=== PATIENT | female | born 1945 | race Caucasian/White ===

== ENCOUNTER 2016-08-19 09:52 | Emergency (ER) | payer MEDICARE, BC ==
[2016-08-19 15:07] VITALS: BP 131/53
--- NOTE | 2016-08-19 22:11 | ED ---
Wale Lemos Aidan, scribed for Td Bryant MD on 08/19/16 at 1453 . GI/ HPI - HPI Summary HPI Summary: 71 y/o female presents to the ED with a complaint of an acute, constant, moderate colostomy bag issues and acute, moderate episodes of diarrhea. The area around her colostomy bag is mildly swollen and she cannot place the seal down. Last time she attempted to adjust the seal, she caused bleeding. Hx of diabetes. She was recently placed on metformin and believes that this is causing her diarrhea. - History of Current Complaint Chief Complaint: EDGeneral Time Seen by Provider: 08/19/16 13:24 Stated Complaint: colostomy SWOLLEN Hx Obtained From: Patient Onset/Duration: Started Days Ago, Still Present Timing: Constant - swelling of the stoma, Intermittent - of diarrhea, Lasting Days Severity: Moderate Current Severity: Moderate Number of Pads per Day: 0 Number of Pads per Hour: 0 Pain Intensity: 0 Location of Pain: Radiates to: - no pain mentioned Pain Characteristics: Other: - no pain mentioned Associated Signs and Symptoms: Positive: Other: - swelling of stoma, bleeding after trying to adjust seal on colostomy bag, diarrhea Aggravating Factor(s): Nothing - however, metformin may have caused diarrhea Alleviating Factor(s): Nothing - unknown - Allergy/Home Medications Allergies/Adverse Reactions: Allergies Allergy/AdvReac Type Severity Reaction Status Date / Time Sulfa Antibiotics Allergy Unknown Verified 08/19/16 11:16 Reaction Details ANESTHETIC Allergy Nausea And Uncoded 08/19/16 11:16 Vomiting Home Medications: Home Medications Albuterol HFA INHALER* [Ventolin HFA Inhaler*] 1 puff INH QID PRN 08/19/16 [ History Confirmed 08/19/16] Aspirin [Aspirin Enteric Coated 81 MG] 81 mg PO DAILY 08/19/16 [History Confirmed 08/19/16] Clopidogrel TAB* [Plavix TAB*] 75 mg PO DAILY 08/19/16 [History Confirmed ] Lisinopril TAB* [Prinivil TAB 10 MG*] 10 mg PO DAILY 08/19/16 [History Confirmed 08/19/16] Metoprolol Tartrate TAB* [Lopressor TAB*] 25 mg PO BID 08/19/16 [History Confirmed 08/19/16] Montelukast Sodium TAB* [Singulair 10 MG TAB*] 10 mg PO BEDTIME 08/19/16 [ History Confirmed 08/19/16] PMH/Surg Hx/FS Hx/Imm Hx Endocrine/Hematology History: Reports: Hx Diabetes GI History: Reports: Other GI Disorders - colostomy bag Infectious Disease History: No Infectious Disease History: Denies: Traveled Outside the [place] in Last 30 Days - Family History Known Family History: Positive: Diabetes - Social History Occupation: Employed Full-time Lives: Alone Alcohol Use: None Substance Use Type: Reports: None Smoking Status (MU): Never Smoked Tobacco Review of Systems Constitutional: Negative Eyes: Negative ENT: Negative Cardiovascular: Negative Respiratory: Negative Positive: Diarrhea. Negative: Abdominal Pain, Vomiting, Nausea Genitourinary: Negative Musculoskeletal: Negative Positive: Other - swelling around stoma, bleeding after trying to adjust colostomy bag seal. Negative: Rash, Bruising Neurological: Negative Psychological: Normal All Other Systems Reviewed And Are Negative: Yes Physical Exam Triage Information Reviewed: Yes Vital Signs On Initial Exam: Initial Vitals Temp Pulse Resp BP Pulse Ox 98.2 F 92 18 140/92 100 08/19/16 09:58 08/19/16 09:58 08/19/16 09:58 08/19/16 09:58 08/19/16 09:58 Vital Signs Reviewed: Yes Appearance: Positive: Well-Appearing, No Pain Distress Skin: Positive: Warm, Skin Color Reflects Adequate Perfusion, Dry, Other - stoma was swollen Head/Face: Positive: Normal Head/Face Inspection Eyes: Positive: Normal ENT: Positive: Normal ENT inspection Respiratory/Lung Sounds: Positive: Clear to Auscultation, Breath Sounds Present Cardiovascular: Positive: RRR Abdomen Description: Positive: Nontender, Soft Bowel Sounds: Positive: Present Musculoskeletal: Positive: Normal Neurological: Positive: Normal Psychiatric: Positive: Affect/Mood Appropriate - [place] Coma Scale Coma Scale Total: 15 Diagnostics - Vital Signs Vital Signs Temp Pulse Resp BP Pulse Ox 08/19/16 14:17 78 98 08/19/16 14:00 118/46 08/19/16 12:30 78 140/64 98 08/19/16 12:00 71 120/50 95 08/19/16 11:30 80 118/62 98 08/19/16 11:12 83 98 08/19/16 11:10 98.6 F 81 16 137/64 97 08/19/16 09:58 98.2 F 92 18 140/92 100 - Laboratory Lab Statement: Any lab studies that have been ordered have been reviewed, and results considered in the medical decision making process. GIGU Course/Dx - Course Course Of Treatment: 71 y/o female presents with diarrhea and swelling around stoma (colostomy bag). Sugar was applied to the stoma and after it shrank, a new ostomy bag was placed. She will follow up with Dr. Anthony. - Diagnoses Provider Diagnoses: Stoma malfunction Discharge - Discharge Plan Condition: Stable Disposition: HOME Discharge Disposition Comment: Please follow up with Dr. Anthony with surgery within 2 days, Patient Education Materials: Colostomy Care (ED) Referrals: Milady CASTILLO,Julio Louie [Primary Care Provider] - Martin Anthony MD [Medical Doctor] - The documentation as recorded by the Wale oh Aidan accurately reflects the service I personally performed and the decisions made by me, Td Bryant MD.
== END 2016-08-19 15:06 | disposition home or self-care (01) ==
LOC: ED 09:52
DX: K94.00 Colostomy complication, unspecified (principal); R19.7 Diarrhea, unspecified
CPT/HCPCS: 99283

== ENCOUNTER 2016-11-02 08:10 | Day surgery (SDC) | payer MEDICARE, BC ==
[~2016-11-02 08:10] MED LIST: Acetaminophen TAB* 325 MG PO PRN; Buffered Lidocaine 0.9% SYRIN* 5 ML/SYR SYRINGE INTRADERM ONE
[2016-11-02] MEDS ORDERED: Midazolam* 1 MG/ML 2 ML VIAL (2 MG) ONE ×2 (10:05→10:24)
[2016-11-02] MEDS ORDERED: Ondansetron INJ* 2 MG/ML VIAL ONE (10:21)
[2016-11-02 11:01] VITALS: BP 133/63
--- NOTE | 2016-11-02 11:25 | OP ---
DATE OF OPERATION: 11/02/2016. DATE OF : 1945. SURGEON: Kailash Jenkins M.D. PREOPERATIVE DIAGNOSIS: Cataract right eye. POSTOPERATIVE DIAGNOSIS: Cataract right eye. OPERATIVE PROCEDURE: Phacoemulsification right eye with IOL. PROCEDURE: The patient was brought to the operating room after being given 1/2% Alcaine with epinep hrine drops in the preoperative area. The eye was prepped and draped in the usual sterile fashion. Sterile drape and eyelid speculum were placed. Again, topical 1/2% Alcaine with epinephrine was gi shayla. A paracentesis incision was made at the 9 o'clock position with the No.75 blade. Clear cornea incision 2.2 x 2.2-mm was created at the 12 o'clock position starting at the anterior limbus using the 2.2-mm keratome. The anterior chamber was irrigated with 0.4 mL of 1% non-preservative intracam eral lidocaine and filled with DisCoVisc. A capsulorrhexis was completed using the cystotome and th e Utrata forceps. Hydrodissection was performed with balanced salt solution. The lens nucleus was r emoved with the Phacoemulsification handpiece without incident. Cortex was removed with the irrigat ion-aspiration handpiece. The capsular bag was re-inflated using DisCoVisc and an SN60WF 19.5 impla nt was inserted with the shooter. The irrigation-aspiration handpiece was used to remove all residu al DisCoVisc. The eye was refilled with balanced salt solution and the wound checked and found to b e watertight. Topical Maxitrol drops were given. [id number]/[facility] #: [id number]
[2016-11-02] MEDS ORDERED: Lidocaine 1% MPF* 2 ML VIAL ONE (13:31)
[2016-11-02] MEDS ORDERED: Povidone Iodine 5% OPTH* 30 ML BTL ONE (13:31)
[2016-11-02] MEDS ORDERED: Buffered Lidocaine 0.9% SYRIN* 5 ML/SYR SYRINGE ONE (13:31)
[2016-11-02] MEDS ORDERED: acetaZOLAMIDE TAB* 250 MG ONE (13:31)
[2016-11-02] MEDS ORDERED: Phenylephrine 2.5% OPTH.SOL* 2 ML BTL ONE (13:31)
[2016-11-02] MEDS ORDERED: Lidocaine 2% EPI 1:200000 MPF* 20 ML VIAL ONE (13:31)
[2016-11-02] MEDS ORDERED: Flurbiprofen 0.03% OPTH.SOL* 2.5 ML BTL ONE (13:31)
[2016-11-02] MEDS ORDERED: Cyclopentolate 1% OPTH.SOL* 2 ML BTL ONE (13:31)
[2016-11-02] MEDS ORDERED: Proparacaine 0.5% OPHTH.SOL* 15 ML BTL ONE (13:31)
[2016-11-02] MEDS ORDERED: Neomycin/Polymy/Dex OPTH.SUSP* MAXITROL 0.1% 5 ML ONE (13:31)
== END 2016-11-02 11:02 | disposition home or self-care (01) ==
LOC: OREAST 08:10
PROVIDERS: ATTEND Specialist
DX: H25.811 Combined forms of age-related cataract, right eye (principal); E11.3293 Type 2 diabetes mellitus with mild nonproliferative diabetic retinopathy without macular edema, bilateral; Z79.4 Long term (current) use of insulin; I10 Essential (primary) hypertension; I25.2 Old myocardial infarction; E03.9 Hypothyroidism, unspecified; J45.909 Unspecified asthma, uncomplicated; G47.33 Obstructive sleep apnea (adult) (pediatric)
CPT/HCPCS: A9270-GY; J2250; J2405; V2632

== ENCOUNTER 2016-11-09 07:37 | Day surgery (SDC) | payer MEDICARE, BC ==
[2016-11-09] MEDS ORDERED: Midazolam* 1 MG/ML 2 ML VIAL (2 MG) ONE ×2 (09:12→09:20)
[2016-11-09] MEDS ORDERED: Ondansetron INJ* 2 MG/ML VIAL ONE (09:12)
[2016-11-09 10:01] VITALS: BP 106/47
[2016-11-09] MEDS ORDERED: Neomycin/Polymy/Dex OPTH.SUSP* MAXITROL 0.1% 5 ML ONE (14:44)
[2016-11-09] MEDS ORDERED: Phenylephrine 2.5% OPTH.SOL* 2 ML BTL ONE (14:44)
[2016-11-09] MEDS ORDERED: Cyclopentolate 1% OPTH.SOL* 2 ML BTL ONE (14:44)
[2016-11-09] MEDS ORDERED: Povidone Iodine 5% OPTH* 30 ML BTL ONE (14:44)
[2016-11-09] MEDS ORDERED: Flurbiprofen 0.03% OPTH.SOL* 2.5 ML BTL ONE (14:44)
[2016-11-09] MEDS ORDERED: Lidocaine 2% EPI 1:200000 MPF* 20 ML VIAL ONE (14:44)
[2016-11-09] MEDS ORDERED: acetaZOLAMIDE TAB* 250 MG ONE (14:44)
[2016-11-09] MEDS ORDERED: Lidocaine 1% MPF* 2 ML VIAL ONE (14:44)
[2016-11-09] MEDS ORDERED: Proparacaine 0.5% OPHTH.SOL* 15 ML BTL ONE (14:45)
[2016-11-09] MEDS ORDERED: Buffered Lidocaine 0.9% SYRIN* 5 ML/SYR SYRINGE ONE (14:45)
--- NOTE | 2016-11-10 04:25 | OP ---
DATE OF OPERATION: 11/09/16 [facility] DATE OF : [birth year] SURGEON: Kailash Jenkins MD PREOPERATIVE DIAGNOSIS: Cataract, left eye. POSTOPERATIVE DIAGNOSIS: Cataract, left eye. OPERATIVE PROCEDURE: Phacoemulsification, left eye with IOL. DESCRIPTION OF PROCEDURE: The patient was brought to the operating room after being given 1/2% Alcaine with epinephrine drops in the preoperative area. The eye was prepped and draped in the usual sterile fashion. Sterile drape and eyelid speculum were placed. Again, topical 1/2% Alcaine with epinephrine was given. A paracentesis incision was made at the 3 o'clock position with the No.75 blade. Clear cornea incision 2.2 x 2.2-mm was created at the 6 o'clock position starting at the anterior limbus using the 2.2-mm keratome. The anterior chamber was irrigated with 0.4 mL of 1% non-preservative intracameral lidocaine and filled with DisCoVisc. A capsulorrhexis was completed using the cystotome and the Utrata forceps. Hydrodissection was performed with balanced salt solution. The lens nucleus was removed with the Phacoemulsification handpiece without incident. Cortex was removed with the irrigation-aspiration handpiece. The capsular bag was re-inflated using DisCoVisc and an [id number] 18 implant was inserted with the shooter. The irrigation-aspiration handpiece was used to remove all residual DisCoVisc. The eye was refilled with balanced salt solution and the wound checked and found to be watertight. Topical Maxitrol drops were given. [id number]/[facility] #: [id number] MTDYari
== END 2016-11-09 09:55 | disposition home or self-care (01) ==
LOC: OREAST 07:37
PROVIDERS: ATTEND Specialist
DX: H25.812 Combined forms of age-related cataract, left eye (principal); E11.3293 Type 2 diabetes mellitus with mild nonproliferative diabetic retinopathy without macular edema, bilateral; E03.9 Hypothyroidism, unspecified; G47.33 Obstructive sleep apnea (adult) (pediatric); J45.909 Unspecified asthma, uncomplicated; Z85.3 Personal history of malignant neoplasm of breast
CPT/HCPCS: A9270-GY; J2250; J2405; V2632

== ENCOUNTER 2018-12-27 13:38 | Emergency (ER) | payer MEDICARE, BC ==
[2018-12-27 13:48] VITALS: BP 147/65
--- NOTE | 2018-12-27 14:51 | UC ---
Cardiac HPI - HPI Summary HPI Summary: 73-year-old woman comes in with a chief complaint of left chest pain. Started about 5 days ago. Is in the left upper chest and radiates down the left arm. Pain is worse with deep inspiration. Patient does have a left subclavian port that's being used for chemotherapy for metastatic ovarian cancer. She does have chronic bilateral hand numbness the left is not worse in the right. She's had heart attack in the past and she says this does not feel like her heart attack. She has been having some chills. She's also been having some bilateral upper abdominal pain. - History of Current Complaint Chief Complaint: UCGeneralIllness Stated Complaint: ABD PAIN SORE THROAT SHOULDER/ARM PAIN HEADACHE Time Seen by Provider: 12/27/18 14:30 Pain Intensity: 7 - Allergy/Home Medications Allergies/Adverse Reactions: Allergies Allergy/AdvReac Type Severity Reaction Status Date / Time Jmoiozb-Eja-Cka Reductase Allergy muscle pain Verified 12/27/18 13:48 Inhibitor Sulfa (Sulfonamide Allergy unk Verified 12/27/18 13:48 Antibiotics) Environmental Allergy Congestion Uncoded 11/09/16 08:00 ANESTHETIC AdvReac Nausea And Uncoded 11/09/16 08:00 Vomiting Home Medications: Home Medications Alirocumab [Praluent Pen] 1 dose IM WEEKLY 12/27/18 [History Confirmed 12/27/18] Antinausea Med 12/27/18 [History] CARBOplatin [Carboplatin] 12/27/18 [History] Clobetasol 0.05% OINT* 1 applic TOPICAL BID 12/27/18 [History Confirmed 12/27/18 ] DOXOrubicin LIPOSOMAL* [Doxil*] 1 dose 12/27/18 [History] Dexamethasone [Decadron] 12/27/18 [History] FLUoxetine CAP* [PROzac CAP*] 20 mg PO DAILY 12/27/18 [History Confirmed ] Fluocinonide 0.05% CM (NF) [Lidex 0.05% CREAM (NF)] 1 applic TOPICAL BID [History Confirmed 12/27/18] Gabapentin 1 tab PO TID 12/27/18 [History Confirmed 12/27/18] Insulin Aspart [Novolog] 1 dose SUBCUT AC PRN 12/27/18 [History Confirmed ] Loratadine [Claritin] 1 tab PO DAILY 12/27/18 [History Confirmed 12/27/18] Semaglutide [Ozempic] 1 dose IM WEEKLY 12/27/18 [History Confirmed 12/27/18] PMH/Surg Hx/FS Hx/Imm Hx Previously Healthy: Yes - metastatic ovarian cancer Cardiovascular History: Myocardial Infarction - Surgical History Surgical History: Yes Surgery Procedure, Year, and Place: knee replacements 2007, 2014. right breast masectomy 1984. colon surgery with colostomy 2015. cholecystectomy 2012. wisdom teeth, unsure - Family History Known Family History: Positive: Diabetes - Social History Alcohol Use: None Substance Use Type: None Smoking Status (MU): Never Smoked Tobacco Review of Systems All Other Systems Reviewed And Are Negative: Yes Constitutional: Positive: Chills Skin: Positive: Negative Eyes: Positive: Negative ENT: Positive: Negative Respiratory: Positive: Other - SEE HPI Cardiovascular: Positive: Chest Pain Gastrointestinal: Positive: Abdominal Pain Motor: Positive: Negative Neurovascular: Positive: Negative Musculoskeletal: Positive: Negative Neurological: Positive: Negative Psychological: Positive: Negative Is Patient Immunocompromised?: No Physical Exam Triage Information Reviewed: Yes Appearance: No Pain Distress, Well-Nourished, Ill-Appearing - MILD Vital Signs: Initial Vital Signs Temp 98 F 12/27/18 13:44 Pulse 96 12/27/18 13:44 Resp 16 12/27/18 13:44 BP 147/65 12/27/18 13:44 Pulse Ox 100 12/27/18 13:44 Vital Signs Reviewed: Yes Eye Exam: Normal Eyes: Positive: Conjunctiva Clear ENT: Positive: Pharynx normal Neck: Positive: Supple Respiratory: Positive: Lungs clear, Normal breath sounds, No respiratory distress Cardiovascular: Positive: RRR Abdomen Description: Positive: Other: - Mild tenderness to palpation upper abdomen bilaterally. Bowel Sounds: Positive: Present Musculoskeletal: Positive: Strength Intact, ROM Intact Neurological: Positive: Alert Psychological: Positive: Age Appropriate Behavior Skin Exam: Normal Diagnostics - EKG Cardiac Rate: NL - AT 1450 Cardiac Rhythm: Sinus: Normal - 94BPM Ectopy: None ST Segment: Normal - Assessment/Plan Course Of Treatment: I did not see any ischemic changes on the EKG. I discussed this with the patient. With the patient's constellation of symptoms her pain could be a cardiac cause or pulmonary cause include pulmonary embolus. Also she could have an infection and the port or clotting around the port. She also has upper abdominal pain chills. With her being immunocompromised she could also have infection. I recommended further evaluation in the emergency department patient preferred to go by POV. - Clinical Impression Provider Diagnosis: Chest pain Discharge ED - Sign-Out/Discharge Documenting (check all that apply): Patient Departure All imaging exams completed and their final reports reviewed: No Studies - Discharge Plan Condition: Stable Disposition: HOME-RECOMMEND TO ED Patient Education Materials: Chest Pain (ED) Referrals: Milady CASTILLO,Julio Louie [Primary Care Provider] - Additional Instructions: GO DIRECTLY TO THE EMERGENCY DEPARTMENT FOR FURTHER EVALUATION OF YOUR CHEST PAIN. - Billing Disposition and Condition Condition: STABLE Disposition: Home-Recommend to ED
== END 2018-12-27 15:00 | disposition home health service (06) ==
LOC: UCEAST 13:38
DX: R07.89 Other chest pain (principal); C56.9 Malignant neoplasm of unspecified ovary; C79.9 Secondary malignant neoplasm of unspecified site; I25.2 Old myocardial infarction; Z88.2 Allergy status to sulfonamides
CPT/HCPCS: 99212; G0463

== ENCOUNTER 2018-12-27 15:22 | Inpatient (IN) | payer MEDICARE, BC ==
[2018-12-27 16:01] LABS: INR 1.03 (0.82-1.09)
[2018-12-27 16:05] LABS: ABS Lymphocytes 0.9 10^3/ul (1.0-4.8); ABS Monocytes 0.4 10^3/ul (0-0.8); ABS Neutrophils 3.4 10^3/ul (1.5-7.7); Hematocrit 28 % (35-47); Hemoglobin 9.4 g/dL (12.0-16.0); Lymphocyte % 19.3 %; Mean Corpuscular HGB Conc 34 g/dL (31-36); Mean Corpuscular Hemoglobin 35 pg (27-31); Mean Corpuscular Volume 103 fL (80-97); Mean Platelet Volume 7.7 fL (7.4-10.4); Nucleated Red Blood Cells % 0.1; Platelet Count 166 10^3/uL (150-450); Red Cell Distribution Width 18 % (10-15); White Blood Count 4.8 10^3/uL (3.5-10.8)
[2018-12-27 16:21] LABS: Albumin/Globulin Ratio 1.3 (1-3); BUN/Creatinine Ratio 18.1 (8-20); Calcium 9.7 mg/dL (8.6-10.3); EGFR African American 96.1 (>60); EGFR Non-African American 79.4 (>60); Potassium 3.9 mmol/L (3.5-5.0); Total Bilirubin 0.3 mg/dL (0.2-1.0)
--- NOTE | 2018-12-27 21:09 | ED ---
Abdominal Pain/Female - HPI Summary HPI Summary: Patient has multiple complaints including left side shoulder pain radiating down her arm, bilateral upper abdominal pain, nausea, diarrhea, drainage from umbilicus 5 days. Patient currently receiving chemotherapy once a month for history of ovarian cancer which metastasized to colon and stomach. States most of colon and partial stomach was resected a year and a half ago. Colostomy reversal last year. History of chronic umbilical and right ventral hernias. History of cardiac stents 2015. Denies fever, cough, sore throat, SOB, vomiting , change in urine, vaginal symptoms. Medical history is hypothyroid, DM, ovarian cancer. - History of Current Complaint Chief Complaint: EDChestPainROMI Stated Complaint: LT SHOULDER PAIN PER PT Time Seen by Provider: 12/27/18 20:52 Hx Obtained From: Patient Onset/Duration: Gradual Onset, Lasting Days Timing: Intermittent Episode Lasting Severity Initially: Moderate Severity Currently: Moderate Pain Intensity: 5 Pain Scale Used: 0-10 Numeric Location: Discrete At: RUQ, Discrete At: LUQ, Epigastric Radiates to: Chest Character: Cramping Aggravating Factor(s): Nothing Alleviating Factor(s): Nothing Associated Signs and Symptoms: Positive: Chest Pain, Nausea, Diarrhea Allergies/Adverse Reactions: Allergies Allergy/AdvReac Type Severity Reaction Status Date / Time Uzjofbs-Urs-Umw Reductase Allergy muscle pain Verified 12/27/18 21:04 Inhibitor Sulfa (Sulfonamide Allergy unk Verified 12/27/18 21:04 Antibiotics) Environmental Allergy Congestion Uncoded 12/27/18 21:04 ANESTHETIC AdvReac Nausea And Uncoded 12/27/18 21:04 Vomiting Home Medications: Home Medications Clobetasol 0.05% OINT* 1 applic TOPICAL BID 12/28/18 [History Confirmed 12/28/18 ] PMH/Surg Hx/FS Hx/Imm Hx Endocrine/Hematology History: Reports: Hx Diabetes - TYPE II, Hx Thyroid Disease - HYPOTHYROID, controlled with medication Cardiovascular History: Reports: Hx Hypertension - controlled with medication, Other Cardiovascular Problems/Disorders - cardiac cath. 4 stents August 2015 Respiratory History: Reports: Hx Asthma - exercise induced, has prn inhaler, Hx Sleep Apnea GI History: Reports: Hx Irritable Bowel, Other GI Disorders - colostomy since 2015, gallstones 2012? had cholecystectomy Musculoskeletal History: Reports: Hx Arthritis, Other Musculoskeletal History - knee replacements Left 2007, Right 2014 Sensory History: Reports: Hx Cataracts, Hx Contacts or Glasses - wears glasses, Hx Glaucoma - borderline Denies: Hx Hearing Aid Opthamlomology History: Reports: Hx Cataracts, Hx Contacts or Glasses - wears glasses, Hx Glaucoma - borderline EENT History: Denies: Hx Deafness Psychiatric History: Reports: Hx Anxiety - r/t family situation, Hx Depression - improved - Cancer History Cancer Type, Location and Year: ovaries mets to all over in remission Hx Chemotherapy: Yes - finished chemo August 2016 - Surgical History Surgery Procedure, Year, and Place: knee replacements 2007, 2014. right breast masectomy 1984. colon surgery with colostomy 2015. cholecystectomy 2012. wisdom teeth, unsure Hx Anesthesia Reactions: Yes - pt reports severe N/V after anesthesia - Immunization History Immunizations Up to Date: Yes Infectious Disease History: No Infectious Disease History: Denies: Traveled Outside the [place] in Last 30 Days - Family History Known Family History: Positive: Diabetes - Social History Alcohol Use: None Substance Use Type: Reports: None Smoking Status (MU): Never Smoked Tobacco Review of Systems Constitutional: Negative Eyes: Negative ENT: Negative Positive: Chest Pain Respiratory: Negative Positive: Abdominal Pain, Nausea Genitourinary: Negative Musculoskeletal: Negative Skin: Negative Neurological: Negative Psychological: Normal All Other Systems Reviewed And Are Negative: Yes Physical Exam - Summary Physical Exam Summary: Left-sided chest pain up near shoulder, tender to palpation. Pain reproducible with movement of left upper extremity. Abdomen diffusely tender with palpation. Drainage from umbilicus with no foul odor noted. Umbilical and right ventral hernia both reducible. Triage Information Reviewed: Yes Vital Signs On Initial Exam: Initial Vitals Temp Pulse Resp BP Pulse Ox 100.5 F 100 18 162/54 96 12/27/18 15:32 12/27/18 15:32 12/27/18 15:32 12/27/18 15:32 12/27/18 15:32 Vital Signs Reviewed: Yes Appearance: Positive: Well-Appearing Skin: Positive: Warm Head/Face: Positive: Normal Head/Face Inspection Eyes: Positive: Normal Neck: Positive: Supple Respiratory/Lung Sounds: Positive: Clear to Auscultation Cardiovascular: Positive: Normal Abdomen Description: Positive: Other: Musculoskeletal: Positive: Normal Neurological: Positive: Normal Psychiatric: Positive: Normal AVPU Assessment: Alert - [place] Coma Scale Best Eye Response: 4 - Spontaneous Best Motor Response: 6 - Obeys Commands Best Verbal Response: 5 - Oriented Coma Scale Total: 15 Diagnostics - Vital Signs Vital Signs Temp Pulse Resp BP Pulse Ox 12/27/18 20:22 99.2 F 93 18 159/82 96 12/27/18 17:43 100.8 F 89 20 121/59 97 12/27/18 15:32 100.5 F 100 18 162/54 96 - Laboratory Lab Results: Lab Results 12/27/18 12/27/18 12/27/18 Range/Units 15:46 15:46 15:46 WBC 4.8 (3.5-10.8) 10^3/uL RBC 2.70 L (3.70-4.87) 10^6 /uL Hgb 9.4 L (12.0-16.0) g/dL Hct 28 L (35-47) % MCV 103 H (80-97) fL MCH 35 H (27-31) pg MCHC 34 (31-36) g/dL RDW 18 H (10-15) % Plt Count 166 (150-450) 10^3/uL MPV 7.7 (7.4-10.4) fL Neut % (Auto) 70.0 % Lymph % (Auto) 19.3 % [place] % (Auto) 9.2 % Eos % (Auto) 1.0 % Baso % (Auto) 0.5 % Absolute Neuts (auto) 3.4 (1.5-7.7) 10^3/ul Absolute Lymphs (auto) 0.9 L (1.0-4.8) 10^3/ul Absolute Monos (auto) 0.4 (0-0.8) 10^3/ul Absolute Eos (auto) 0.0 (0-0.6) 10^3/ul Absolute Basos (auto) 0.0 (0-0.2) 10^3/ul Absolute Nucleated RBC 0.0 10^3/ul Nucleated RBC % 0.1 INR (Anticoag Therapy) 1.03 (0.82-1.09) Sodium 136 (135-145) mmol/L Potassium 3.9 (3.5-5.0) mmol/L Chloride 100 L (101-111) mmol/L Carbon Dioxide 26 (22-32) mmol/L Anion Gap 10 (2-11) mmol/L BUN 13 (6-24) mg/dL Creatinine 0.72 (0.51-0.95) mg/dL Est GFR ( Amer) 96.1 (>60) Est GFR (Non-Af Amer) 79.4 (>60) BUN/Creatinine Ratio 18.1 (8-20) Glucose 138 H (70-100) mg/dL Calcium 9.7 (8.6-10.3) mg/dL Total Bilirubin 0.30 (0.2-1.0) mg/dL AST 13 (13-39) U/L ALT 13 (7-52) U/L Alkaline Phosphatase 81 (34-104) U/L Troponin I 0.00 (<0.04) ng/mL Total Protein 7.0 (6.4-8.9) g/dL Albumin 4.0 (3.2-5.2) g/dL Globulin 3.0 (2-4) g/dL Albumin/Globulin Ratio 1.3 (1-3) 12/27/18 Range/Units 19:24 WBC (3.5-10.8) 10^3/uL RBC (3.70-4.87) 10^6 /uL Hgb (12.0-16.0) g/dL Hct (35-47) % MCV (80-97) fL MCH (27-31) pg MCHC (31-36) g/dL RDW (10-15) % Plt Count (150-450) 10^3/uL MPV (7.4-10.4) fL Neut % (Auto) % Lymph % (Auto) % [place] % (Auto) % Eos % (Auto) % Baso % (Auto) % Absolute Neuts (auto) (1.5-7.7) 10^3/ul Absolute Lymphs (auto) (1.0-4.8) 10^3/ul Absolute Monos (auto) (0-0.8) 10^3/ul Absolute Eos (auto) (0-0.6) 10^3/ul Absolute Basos (auto) (0-0.2) 10^3/ul Absolute Nucleated RBC 10^3/ul Nucleated RBC % INR (Anticoag Therapy) (0.82-1.09) Sodium (135-145) mmol/L Potassium (3.5-5.0) mmol/L Chloride (101-111) mmol/L Carbon Dioxide (22-32) mmol/L Anion Gap (2-11) mmol/L BUN (6-24) mg/dL Creatinine (0.51-0.95) mg/dL Est GFR ( Amer) (>60) Est GFR (Non-Af Amer) (>60) BUN/Creatinine Ratio (8-20) Glucose (70-100) mg/dL Calcium (8.6-10.3) mg/dL Total Bilirubin (0.2-1.0) mg/dL AST (13-39) U/L ALT (7-52) U/L Alkaline Phosphatase (34-104) U/L Troponin I 0.01 (<0.04) ng/mL Total Protein (6.4-8.9) g/dL Albumin (3.2-5.2) g/dL Globulin (2-4) g/dL Albumin/Globulin Ratio (1-3) Result Diagrams: 12/29/18 05:55 12/29/18 05:55 Lab Statement: Any lab studies that have been ordered have been reviewed, and results considered in the medical decision making process. Abdominal Pain Fem Course/Dx - Course Course Of Treatment: Patient has multiple complaints including left side shoulder pain radiating down her arm, bilateral upper abdominal pain, nausea, diarrhea, drainage from umbilicus 5 days. Patient currently receiving chemotherapy once a month for history of ovarian cancer which metastasized to colon and stomach. States most of colon and partial stomach was resected a year and a half ago. Colostomy reversal last year. History of chronic umbilical and right ventral hernias. History of cardiac stents 2016. Denies fever, cough, sore throat, SOB, vomiting, change in urine, vaginal symptoms. Medical history is hypothyroid, DM, ovarian cancer. Febrile at 100.8 on arrival. Heart rate 100. Fever resolved. Vital signs otherwise within normal limits. Labs otherwise unremarkable read patient baseline. EKG sinus rhythm, normal RI I, no prior to compare to. CT chest abdomen and pelvis with contrast positive for left-sided pneumonia, and right epigastric anterolateral hernia containing the herpetic flexure with question of a low-grade colonic obstruction. Patient has no history of recent admission to hospital. Patient meets sepsis criteria. Started on Rocephin 1 g and azithromycin 500 mg IV for pneumonia. Admitted to hospitalist . - Diagnoses Provider Diagnoses: Sepsis, Pneumonia Discharge ED - Sign-Out/Discharge Documenting (check all that apply): Patient Departure - Discharge Plan Condition: Fair Disposition: ADMITTED TO [facility] - Billing Disposition and Condition Condition: FAIR Disposition: Admitted to [facility]
[2018-12-27] MEDS ORDERED: Iodixanol* (CONTRAST) 320 MG/ML 100 ML SDV IV ONE (21:46)
[2018-12-27] MEDS ORDERED: Azithromycin 500 mg/250 ml NS 500 MG/250 ML BAG IVPB ONE (23:46)
[2018-12-27] MEDS ORDERED: cefTRIAXone(*) 1 GM in NS 0.9% 50 ML* 50 ML IVPB ONE (23:46)
[2018-12-27] MEDS ORDERED: NS 0.9% 1000 ML** 2,000 ML IV ONE (23:48)
[2018-12-28 03:18] LABS: Urine Appearance Cloudy; Urine Bacteria Absent (Absent); Urine Bilirubin Negative (Negative); Urine Blood Negative (Negative); Urine Color Yellow; Urine Glucose Negative (Negative); Urine Ketones Negative (Negative); Urine Nitrite Negative (Negative); Urine Protein Negative (Negative); Urine Red Blood Cell Absent (Absent); Urine Specific Gravity 1.041 (1.010-1.030); Urine Squamous Epithelial Cell Present (Absent); Urine Urobilinogen Negative (Negative); Urine White Blood Cell 3+(>20/hpf) (Absent)
[2018-12-28] MEDS ORDERED: Cetirizine* 10 MG TAB PO PRN (06:33)
[2018-12-28] MEDS ORDERED: INSULIN ASPART SUBCUT SCH (06:45)
[2018-12-28] MEDS ORDERED: Vancomycin(*) 1,000 MG in NS 0.9% 250 ML* 250 ML IVPB ONE (07:07)
[2018-12-28] MEDS ORDERED: Vancomycin per Pharmacy* NOTE FOLLOW UP SCH (08:00)
--- NOTE | 2018-12-28 08:48 | HP ---
CC: Dr. Julio Henning* ADMISSION HISTORY AND PHYSICAL: DATE OF ADMISSION: 12/28/18 CHIEF COMPLAINT: Left-sided rib and shoulder pain and pain around the right side of her umbilicus. Nausea, no vomiting, and some diarrhea. She has also noticed a cough productive of yellowish green sputum. HISTORY OF PRESENT ILLNESS: This is a 73-year-old female with past medical history of ovarian cancer; on chemotherapy for the last 3 years, history of diabetes and diabetic neuropathy, history of sleep apnea; on CPAP who came in with fever and left-sided rib pain and shoulder pain. She also had another nonspecific pain on the right side when she had hernia around her surgical site. She also had some accompanying nausea and diarrhea, but no vomiting and some cough, which was productive of yellowish green sputum. She denied any shortness of breath and denied any palpitations, any other numbness, tingling, or weakness. PAST MEDICAL HISTORY: As mentioned: 1. Sleep apnea, on CPAP. 2. Hypothyroidism. 3. Osteoarthritis. 4. Type 2 diabetes. 5. Diabetic oculopathy. 6. Coronary artery disease, status post 4 stents. 7. Ovarian malignancy with multiple complications including surgical resection of stomach and colon. PAST SURGICAL HISTORY: Includes: 1. Hernia repair in 2011. 2. Mastectomy in 1984. 3. Bilateral knee replacements. 4. Cholecystectomy. 5. BCC excision on scalp and behind ear. 6. Coronary artery stenting, as mentioned. 7. Exploratory surgery for the ovarian tumor with partial excision of stomach and colostomy, later having reversal of colostomy, and having multiple umbilical hernias. 8. Bilateral cataract resections. HOME MEDICATIONS: The patient is currently on: 1. NovoLog sliding scale. 2. Antinausea medication q.6 hours p.r.n. 3. Dexamethasone 0.5 mg for 3 days with chemo. 4. Clobetasol ointment topical b.i.d. 5 Levemir 40 units subcutaneous every morning. 6. Loratadine 10 mg p.o. daily p.r.n. 7. Carboplatin dose IV monthly. 8. Doxorubicin IV dose monthly. 9. Valacyclovir 500 mg for herpes outbreak. 10. Semaglutide dose IM weekly. 11. Gabapentin 300 mg oral t.i.d. 12. Fluocinonide topical b.i.d. 13. Prozac 20 mg oral daily. 14. Aspirin 81 mg oral daily. 15. Praluent Pen IM every week. ALLERGIES: The patient is allergic to STATINS, SULFA, ENVIRONMENTAL, and ANESTHESIA which causes nausea and vomiting. FAMILY HISTORY: Father had no problems. Mother had some diabetes, but otherwise noncontributory at her age. SOCIAL HISTORY: The patient is . Lives with her son and grandson. Denies any smoking, alcohol or any drug use. She is, otherwise, a full code. Her son is the healthcare proxy. REVIEW OF SYSTEMS: A 14-point review of systems did not reveal any new information, other than what is stated in the HPI. PHYSICAL EXAMINATION GENERAL: The patient is awake, alert, oriented x3, did not appear to be in any acute respiratory distress. VITAL SIGNS: In the ER, T-max was documented at 100.8, BP 108/58, heart rate 88 , respiration rate 25, saturating 93% on room air. HEAD AND NECK EXAMINATION: Atraumatic, normocephalic. Bilateral pupils were reactive. Oral mucosa was moist. LUNGS: The patient's lungs appear to be clear to auscultation bilaterally even though the chest CT was suggestive of pneumonia. ABDOMEN: The patient had distended abdomen with multiple surgical hernia sites. The umbilical hernia area was noted to be minimally tender and expressed some purulent material on pressure, which was sent for culturing. EXTREMITIES: No cyanosis, clubbing, or edema. DIAGNOSTIC STUDIES/LAB DATA: Labs: CBC showed some mild anemia with hemoglobin of 9.4, hematocrit of 28, platelet count was 166, and white count was noted to be normal at 4.8. INR was normal at 1.03. Comprehensive metabolic panel was unremarkable. Two sets of troponins were negative. Urinalysis was showing 3+ leuk esterase, but negative for any nitrites. CT abdomen, pelvis, and chest showed lateral left upper lobe infiltrate and consolidation consistent with pneumonia, status post right mastectomy with right axillary lymph node dissection, and umbilical hernia with small-bowel segments and no obstruction or strangulation. There is a slight induration about the umbilicus or the anterior aspect of the hernia sac of uncertain etiology and a small epigastric midline ventral wall hernia with small-bowel and no obstruction or strangulation. There is right epigastric anterolateral hernia containing hepatic flexure with question of low-grade colonic obstruction , status post colostomy. Fatty infiltration of the liver. IMPRESSION: This is a 73-year-old female with ovarian cancer, diabetes, hypothyroidism here with fever, left-sided rib pain, and some umbilical drainage and urinary tract infection. ASSESSMENT AND PLAN: 1. Sepsis, likely multifactorial given her pneumonia on the CAT scan versus the umbilical hernia drainage, which seemed to be purulent versus urinary tract infection. For now, we will start the patient on broad-spectrum antibiotics with ceftriaxone and azithromycin, which would cover the pneumonia. We will also add vancomycin to cover for any MRSA as the patient does have malignancy and follow the healthcare areas which could be contributing to her abscess formation. I will also consult with surgeon to evaluate the patient's umbilical site to see if any surgical drainage would be performed. We will follow up the patient's cultures and titrate antibiotics accordingly. 2. History of diabetes. We will restart her long-acting insulin and start the patient on sliding scale. 3. History of dyslipidemia. 4. History of obstructive sleep apnea. Restart her CPAP. 5. History of ovarian cancer, currently stable. 6. History of coronary artery disease, status post 4 stents. Continue her aspirin. 7. History of chronic pain and depression. Restart her medications. 8. DVT prophylaxis with subcu Lovenox. 9. Code status. The patient is full code. [id number] #: [id number] MTDD
[2018-12-28] MEDS ORDERED: Insulin GLARGINE(*) 1 UNITS UNIT SUBCUT SCH (09:00)
[2018-12-28] MEDS ORDERED: [UNRECOGNIZED DRUG - OTHER] TOPICAL SCH (09:00)
[2018-12-28] MEDS ORDERED: FLUOCINONIDE 0.05% TOPICAL SCH (09:00)
[2018-12-28] MEDS: NS 0.9% 1000 ML** 1,000 ML IV SCH (09:08)
[2018-12-28] MEDS ORDERED: Dextrose 50% VIAL 50 ml IV PUSH PRN (09:50)
[2018-12-28] MEDS: Aspirin EC TAB* 81 MG TAB.EC PO SCH (09:57)
[2018-12-28] MEDS: Gabapentin CAP(*) 300 MG PO SCH ×3 (09:57→20:51)
[2018-12-28] MEDS: Enoxaparin(*) 40 MG/0.4 ML SYR SUBCUT SCH (09:57)
[2018-12-28] MEDS: Acetaminophen TAB* 325 MG PO PRN ×2 (09:57→20:51)
[2018-12-28] MEDS: Clobetasol 0.05% OINT* 30 GM TUBE TOPICAL SCH ×2 (09:58→20:53)
[2018-12-28] MEDS: FLUoxetine CAP* 20 MG PO SCH (09:58)
[2018-12-28] MEDS ORDERED: Insulin LISPRO* 1 UNITS UNIT SUBCUT SCH (12:00)
--- NOTE | 2018-12-28 13:04 | PN ---
Subjective Date of Service: 12/28/18 Interval History: Patient complains mainly of pleuritic pain on deep breathing in the left lung. Patient complains of intermittent pain radiating down the left arm. Patient has pain in abdomen around site of drainage. Patient is getting chemotherapy with Carbaplatin/Doxil and is on round 09/27 and was due for reevaluation with CT scan for continued need for chemo by her Oncologist/Medical Editor. Patient denies F/C , dizziness, CP, SOB, productive cough, or other pain. Family History: Unchanged from Admission Social History: Unchanged from Admission Past Medical History: Unchanged from Admission Objective Active Medications: Acetaminophen (Tylenol Tab*) 650 mg PO Q6H PRN PRN Reason: HEADACHE Last Admin: 12/28/18 09:57 Dose: 650 mg Aspirin (Aspirin Ec Tab*) 81 mg PO QAM [facility] Last Admin: 12/28/18 09:57 Dose: 81 mg Cetirizine HCl (Zyrtec*) 10 mg PO DAILY PRN PRN Reason: Allergy Symptoms Clobetasol Propionate (Clobetasol 0.05% Oint*) 1 applic TOPICAL BID [facility] Last Admin: 12/28/18 09:58 Dose: Not Given Dextrose (Dextrose 50% Vial 50 Ml*) 25 ml IV PUSH .FOR FS < 60 - SS PRN PRN Reason: FS < 60 Enoxaparin Sodium (Lovenox(*)) 40 mg SUBCUT Q24H [facility] Last Admin: 12/28/18 09:57 Dose: 40 mg Fluoxetine HCl (Prozac Cap*) 20 mg PO DAILY [facility] Last Admin: 12/28/18 09:58 Dose: 20 mg Gabapentin (Neurontin Cap(*)) 300 mg PO TID [facility] Last Admin: 12/28/18 09:57 Dose: 300 mg Heparin Sodium (Porcine) (Heparin Flush Port (Ivad)) 5 ml FLUSH DAILY [facility]; Protocol Last Admin: 12/28/18 11:16 Dose: Not Given Sodium Chloride (Ns 0.9% 1000 Ml) 1,000 mls @ 75 mls/hr IV PER RATE [facility] Last Admin: 12/28/18 09:08 Dose: 75 mls/hr Azithromycin (Zithromax 500 Mg/250 Ml) 500 mg in 250 mls @ 250 mls/hr IVPB Q24H [facility] Ceftriaxone Sodium 1 gm/ (Sodium Chloride) 50 mls @ 100 mls/hr IVPB Q24H [facility] Vancomycin HCl 1,250 mg/ (Sodium Chloride) 250 mls @ 166.667 mls/hr IVPB Q12H [facility] Insulin Human Lispro (Humalog*) 0 units SUBCUT ACHS [facility]; Protocol Pharmacy Consult (Vancomycin Per Pharmacy*) 1 note FOLLOW UP .VANC PER PHARMACY [facility]; Protocol Pharmacy Profile Note (Vancomycin Trough Check) 1 note FOLLOW UP 0530 ONE Stop: 12/30/18 05:31 Vital Signs - 8 hr 12/28/18 12/28/18 12/28/18 05:00 05:19 05:49 Temperature Pulse Rate 90 89 91 Respiratory 25 28 28 Rate Blood Pressure 111/57 120/59 (mmHg) O2 Sat by Pulse 95 94 94 Oximetry 12/28/18 12/28/18 12/28/18 06:00 06:19 06:50 Temperature Pulse Rate 89 89 90 Respiratory 22 25 17 Rate Blood Pressure 108/50 103/50 (mmHg) O2 Sat by Pulse 96 93 94 Oximetry 12/28/18 12/28/18 12/28/18 07:00 07:23 07:32 Temperature 99.2 F Pulse Rate 91 93 88 Respiratory 17 25 24 Rate Blood Pressure 125/57 (mmHg) O2 Sat by Pulse 94 95 96 Oximetry 12/28/18 12/28/18 12/28/18 09:00 09:57 11:17 Temperature 98.0 F Pulse Rate 77 Respiratory 16 18 16 Rate Blood Pressure 121/69 (mmHg) O2 Sat by Pulse 95 Oximetry 12/28/18 12/28/18 11:22 11:50 Temperature 98.8 F 98.1 F Pulse Rate 75 74 Respiratory 16 16 Rate Blood Pressure 125/55 119/65 (mmHg) O2 Sat by Pulse 96 97 Oximetry Oxygen Devices in Use Now: None Appearance: Patient is a 73yo female who appears stated age and is sitting in the bed in [facility]. Eyes: No Scleral Icterus Ears/Nose/Mouth/Throat: NL Teeth, Lips, Gums, Clear Oropharnyx, Mucous Membranes Moist Neck: NL Appearance and Movements; NL JVP, Trachea Midline Respiratory: Symmetrical Chest Expansion and Respiratory Effort, Clear to Auscultation Cardiovascular: NL Sounds; No Murmurs; No JVD, RRR, No Edema Abdominal: NL Sounds; No Tenderness; No Distention, - - Small open area with drainage around the umbilicus. Slight surrounding erythema. No appreciable odor. Ventral Hernia. Lymphatic: No Cervical Adenopathy Extremities: No Clubbing, Cyanosis Skin: No Nodules or Sclerosis Neurological: Alert and Oriented x 3, NL Sensation, NL Muscle Strength and Tone , - - CN II-XII intact. Result Diagrams: 12/27/18 15:46 12/27/18 15:46 Additional Lab and Data: Lab Results Microbiology and Other Data: Microbiology 12/28/18 06:45 Skin and Soft Tissue MRSA/MSSA (PCR - Final Misc Source (See Comment) Mrsa Negative S.aureus Negative Gram Stain - Final Assess/Plan/Problems-Billing Assessment: Patient is a 73yo female with a PMH for Ovarian Cancer S/P Resection, chemo, and resection of intestines and stomach, RI, DM II, OA, here with chest pain, found to have pneumonia and a possible colocutaneous fistula who is being treated with antibiotics and is being seen by surgery. - Patient Problems (1) Community acquired bacterial pneumonia Current Visit: Yes Status: Acute Code(s): J15.9 - UNSPECIFIED BACTERIAL PNEUMONIA SNOMED Code(s): 986296526 Comment: - Infiltrate on CT with pleuritic pain, fevers. - Treat with Ceftriaxone/Azithromycin - Not requiring O2. - Pulmonary Toilet, Pending urine antigens. (2) Colocutaneous fistula Current Visit: Yes Status: Acute Code(s): K63.2 - FISTULA OF INTESTINE SNOMED Code(s): 983031384 Comment: - Appreciate Surgical Input - No Immediate therapy recommended, No signs of abscess or indication for antibiotics - Consider Fistulogram, manage output (3) Ovarian cancer Current Visit: Yes Status: Acute Comment: - Undergoing chemo on 6/6 treatments last month, follow up outpatient oncologist for risks/benefits of ongoing chemo with fistula (4) History of RI (myocardial infarction) Current Visit: Yes Status: Acute Code(s): I25.2 - OLD MYOCARDIAL INFARCTION SNOMED Code(s): 401460733 Comment: - Arm/Chest pain not consistent with previous RI per patient - Low concern for recurrent RI - Negative trops x2 and non-ischemic EKG. (5) FATIMAH (obstructive sleep apnea) Current Visit: Yes Status: Acute Code(s): G47.33 - OBSTRUCTIVE SLEEP APNEA ( ADULT) (PEDIATRIC) SNOMED Code(s): 62595980 Comment: - CPAP (6) DM II (diabetes mellitus, type II), controlled Current Visit: Yes Status: Acute Code(s): E11.9 - TYPE 2 DIABETES MELLITUS WITHOUT COMPLICATIONS SNOMED Code(s): 24089756 Comment: - SSI and ACHS [facility] - Reintroduce lantus based on Oral intake today. (7) DVT prophylaxis Current Visit: Yes Status: Acute Code(s): Z29.9 - ENCOUNTER FOR PROPHYLACTIC MEASURES, UNSPECIFIED SNOMED Code(s): 400928155 Comment: - Lovenox SubQ (8) Full code status Current Visit: Yes Status: Acute Code(s): Z78.9 - OTHER SPECIFIED HEALTH STATUS SNOMED Code(s): 933443619 Status and Disposition: Observation for CAP and possible fistula evaluation.
--- NOTE | 2018-12-28 15:08 | PN ---
Progress Note - Progress Note Date of Service: 12/28/18 Note: Brief Surgery Note (full consult dictated): S: 73 yo female w/ ovarian cancer (with active disease, most recent chemotherapy ~ 2 wks ago, all oncology care at [facility]; PCP in [place]) with drainage from umbilicus for 4-5 d. Patient describes as "pussy". Also having similar concurrent vaginal drainage. No particular new urinary sx. Presented and admitted for L shoulder and Left chest pain x 1 wk, with CT chest showing NINA infiltrate c/w pneumonia. Also seen by Dr. Jay subsequent to my exam and by Dr. Nuñez earlier this a.m. in the ED. O: Vital Signs - 8 hr 12/28/18 12/28/18 12/28/18 07:23 07:32 09:00 Temperature 99.2 F 98.0 F Pulse Rate 93 88 77 Respiratory 25 24 16 Rate Blood Pressure 125/57 121/69 (mmHg) O2 Sat by Pulse 95 96 95 Oximetry 12/28/18 12/28/18 12/28/18 09:57 11:17 11:22 Temperature 98.8 F Pulse Rate 75 Respiratory 18 16 16 Rate Blood Pressure 125/55 (mmHg) O2 Sat by Pulse 96 Oximetry 12/28/18 12/28/18 12/28/18 11:50 12:50 14:17 Temperature 98.1 F Pulse Rate 74 Respiratory 16 16 16 Rate Blood Pressure 119/65 (mmHg) O2 Sat by Pulse 97 Oximetry Gen: obese female, sitting up in bed; NAD Heart: reg Lungs: clear to ausc; no chest wall tenderness Abd: obese; bulge in RUQ which appears to be reducible, mildly tender; mid abd w / minor erythema at umbilicus w/o expressible drainage; mildly tender; difficult to discern reducibility (of known hernia by CT). No peritoneal signs. Labs: Laboratory Tests 12/27/18 12/27/18 12/28/18 15:46 15:46 02:05 WBC 4.8 Hgb 9.4 L Hct 28 L Glucose 138 H Urine Appearance Cloudy Ur Specific [place] 1.041 H Ur Leukocyte Esterase 3+ A Urine WBC (Auto) 3+(>20/hpf) A Ur Squamous Epith Cells Present A CT w/ IV contrast only reviewed personally. Gram stain of umbilical drainage: SOURCE: MISC SOURC SPDESC: ORDERED: MRSA/SA SSTI, Culture & Stain COMMENTS: Comment: umbilical abscess Procedure Result Reported Site MRSA/S. aureus SSTI PCR Final 12/28/18841 ML Organism 1 MRSA NEGATIVE Organism 2 S.AUREUS NEGATIVE Wound/Misc Gram Stain Final 12/28/18731 ML 2+ Neutrophils 1+ Epithelial Cells 2+ Gram Positive Cocci 2+ Gram Positive Bacilli 1+ Gram Negative Diplococci Wound/Misc Culture PENDING A: possible colo- or enterocutaneous fistula (as well as colovaginal fistula by hx), low output at this point. P: discussed w/ Drs. Nuñez and Misty as well as hosp PA Brissa Woo. At this point patient does not appear to be ill from these possible fistulae, but is being treated w/ IV abx for NINA pneumonia. Unless she has an undrained collection or abscess, or output increases significantly, these do not at present require any surgical intervention. We will follow.
[2018-12-28] MEDS: Insulin LISPRO* 1 UNITS UNIT SUBCUT SCH ×2 (17:19→20:58)
--- NOTE | 2018-12-28 17:44 | CONS ---
CC: Dr. Julio Henning, [place], [place]; Dr. Barnard at [facility] SURGICAL CONSULT NOTE: DATE OF CONSULT: 12/28/18 ATTENDING SURGEON: Kortney Nuñez MD (DANII Lin dictating). PRIMARY CARE PROVIDER: Dr. Julio Henning in [place], [place]. CHIEF COMPLAINT: Umbilical drainage. HISTORY OF PRESENT ILLNESS: This is a 73-year-old female who has a known history of ovarian cancer with apparent active disease and receiving chemotherapy through the team at [facility] (her last chemotherapy including carboplatin and doxorubicin was approximately 2 weeks ago) presented to the ED last evening and admitted to the medical service early this morning with left-sided rib and shoulder pain times approximately 1 week, associated with fever and chills and nausea, though no vomiting. She also notes some degree of shortness of breath, though no dyspnea at rest. The left chest symptoms began about a week ago. Around that time, she was also experiencing fever and chills and some abdominal pain with subsequent associated umbilical and vaginal drainage that she describes as pussy. She has continued to have drainage from both areas (vaginal greater than umbilical), though at this point does not have any real subjective abdominal complaints other than maybe some "soreness" around the umbilicus. She does not have any urinary symptoms compared with her baseline. She states that her bowels have continued to be on the loose side which is usual for her. She denies any particulate matter in her urine or pneumouria. A culture was taken from the umbilical drainage upon admission. It has not been sufficient to require an ongoing dressing. PAST MEDICAL HISTORY: Ovarian cancer as noted above (she states she underwent exploratory surgery in March 2016 with partial gastrectomy and colectomy with diverting colostomy and then subsequent reversal of the colostomy in April 2017). She is treated for type 2 diabetes, sleep apnea (on CPAP), hypothyroidism, osteoarthritis, peripheral neuropathy of the lower extremities ( apparently related to Taxol therapy early on in her course). She also has a history of coronary artery disease, status post CRITICAL CARE NURSE PRACTITIONER with stenting. Breast cancer, hyperlipidemia, and depression. PAST SURGICAL HISTORY: Previous surgeries include those noted above as well as right mastectomy for breast cancer in 1984, prior umbilical hernia repair (the patient does not know whether mesh was used), bilateral knee replacements, laparoscopic cholecystectomy, bilateral cataract extraction. MEDICATIONS: Home medications were reviewed and include: 1. Both short and long acting insulin. 2. Dexamethasone prior to chemotherapy. 3. Loratadine p.r.n. 4. Valacyclovir p.r.n. 5. Gabapentin for her peripheral neuropathy. 6. Prozac. 7. Baby aspirin. 8. Praluent, which she states is her for her hypercholesterolemia. Allergies, family history, social history, review of systems are as per her admission history and physical and are not repeated here. PHYSICAL EXAM: T-max 100.8, currently 99.2; blood pressure 125/57; pulse 88; respirations 16 to 24 with 96% saturation on room air. Current height and weight, 5 feet 4 inches and 214 pounds; BMI 36. General: Well-nourished, obese female, in no acute distress. She appears comfortable and smiling. Skin : Warm and dry. There is some minor erythema at the umbilicus, thought it encompasses no more than area of approximately 2 cm. Around the edge, there is some dried drainage present. HEENT: Unremarkable. Heart: Regular rate and rhythm. No murmur noted. Lungs: Clear to auscultation. No rales or wheezes. No left chest wall tenderness. Abdomen: Obese. There is an obvious right upper quadrant defect from known prior colostomy site abdominal wall hernia. The bulge in the right upper quadrant appears to be reducible and exhibits some mild tenderness. There is some diffuse scattered mild tenderness throughout the abdomen. The umbilicus itself is not particularly tender other than with direct palpation, anyway that is pretty minor. There is no expressible drainage on my exam; a dry sterile gauze was replaced. It is difficult to tell whether the umbilical and supraumbilical hernias are reducible secondary to body habitus. No other palpable masses or organomegaly. Genitalia and rectal, not done (I did mention the vaginal discharge to the hospitalist and recommended vaginal exam). DIAGNOSTIC STUDIES/LAB DATA: White blood cell count 4800, hemoglobin 9.4, hematocrit 28. Chemistries are essentially normal. Urinalysis is remarkable for cloudy urine with a specific gravity of 1.041, 3+ leukocytes, and 3+ squamous epithelial cells. CT scan of the chest, abdomen, and pelvis with IV contrast only was reviewed personally, this showing a left upper lobe infiltrate in the chest consistent with pneumonia. Also noted were hernias in the right upper quadrant superior to the umbilicus and at the umbilicus. There is no evidence of obstruction at any of the hernias. The umbilical hernia is large and there are some inflammatory changes leading up to the skin, though no fluid collection or abscess noted. There are postoperative changes noted. There are no particular inflammatory changes in the pelvis. IMPRESSION: Possible enterocutaneous or colocutaneous fistula, though unclear based on clinical scenario, also possible colovaginal fistula based on history with pelvic exam pending. PLAN: Case was discussed with Dr. Nuñez and Dr. Jay as well as PA hospitalist , Pb Quinteros. At this point because the umbilical drainage is minimal and relatively asymptomatic, there is no further immediate surgical intervention required. There is a culture pending, which seems to show a mixed bacteria on Gram stain. The patient is being treated currently with IV antibiotics for the left upper lobe pneumonia. As long as the drainage from the umbilicus and vagina are minimal and manageable for the patient, there is nothing more to do at the present time. She will need further followup and decision making with her oncology team at [facility]. We will follow along while she is inpatient. DANII LIN [id number]/[facility] #: [id number] MTDD
[2018-12-28] MEDS ORDERED: Vancomycin(*) 1,250 MG in NS 0.9% 250 ML* 250 ML IVPB SCH (18:00)
[2018-12-29] MEDS: NS 0.9% 1000 ML** 1,000 ML IV SCH (01:22)
[2018-12-29] MEDS: cefTRIAXone(*) 1 GM in NS 0.9% 50 ML* 50 ML IVPB SCH (01:22)
[2018-12-29] MEDS: Azithromycin 500 mg/250 ml NS 500 MG/250 ML BAG IVPB SCH (02:18)
[2018-12-29 06:04] LABS: Hematocrit 25 % (35-47); Hemoglobin 8.2 g/dL (12.0-16.0); Mean Corpuscular HGB Conc 34 g/dL (31-36); Mean Corpuscular Hemoglobin 35 pg (27-31); Mean Corpuscular Volume 103 fL (80-97); Mean Platelet Volume 7.5 fL (7.4-10.4); Platelet Count 153 10^3/uL (150-450); Red Blood Count 2.38 10^6 /uL (3.70-4.87); Red Cell Distribution Width 18 % (10-15); White Blood Count 3.2 10^3/uL (3.5-10.8)
[2018-12-29 06:17] LABS: ABS Eosinophils 0.1 10^3/ul (0-0.6); ABS Lymphocytes 0.7 10^3/ul (1.0-4.8); ABS Monocytes 0.4 10^3/ul (0-0.8); ABS Neutrophils 2.1 10^3/ul (1.5-7.7); Eosinophil % 1.6 %; Lymphocyte % 21.7 %
[2018-12-29 06:20] LABS: BUN/Creatinine Ratio 12.9 (8-20); EGFR African American 114.2 (>60); EGFR Non-African American 94.4 (>60); Magnesium 1.6 mg/dL (1.9-2.7); Potassium 3.7 mmol/L (3.5-5.0)
[2018-12-29] MEDS ORDERED: Magnesium Sulfate 2 GM IV* 2 GM/50 ML BAG IVPB ONE (07:03)
[2018-12-29] MEDS: Enoxaparin(*) 40 MG/0.4 ML SYR SUBCUT SCH (07:33)
[2018-12-29] MEDS: Insulin LISPRO* 1 UNITS UNIT SUBCUT SCH ×4 (08:01→21:45)
[2018-12-29] MEDS: Aspirin EC TAB* 81 MG TAB.EC PO SCH (08:04)
[2018-12-29] MEDS: Gabapentin CAP(*) 300 MG PO SCH ×3 (08:04→21:45)
[2018-12-29] MEDS: Clobetasol 0.05% OINT* 30 GM TUBE TOPICAL SCH ×2 (08:05→21:49)
[2018-12-29] MEDS: FLUoxetine CAP* 20 MG PO SCH (08:05)
--- NOTE | 2018-12-29 14:37 | PN ---
Subjective Date of Service: 12/29/18 Interval History: Patient feels well today, There is minimal pain in chest and abdomen at this time. No more arm pain, minimal shortness of breath. Patient is tolerating diet well and has minimal drainage from abdomen and vagina. Family History: Unchanged from Admission Social History: Unchanged from Admission Past Medical History: Unchanged from Admission Objective Active Medications: Acetaminophen (Tylenol Tab*) 650 mg PO Q6H PRN PRN Reason: HEADACHE Last Admin: 12/28/18 20:51 Dose: 650 mg Aspirin (Aspirin Ec Tab*) 81 mg PO QAM [facility] Last Admin: 12/29/18 08:04 Dose: 81 mg Cetirizine HCl (Zyrtec*) 10 mg PO DAILY PRN PRN Reason: Allergy Symptoms Clobetasol Propionate (Clobetasol 0.05% Oint*) 1 applic TOPICAL BID [facility] Last Admin: 12/29/18 08:05 Dose: 1 applic Dextrose (Dextrose 50% Vial 50 Ml*) 25 ml IV PUSH .FOR FS < 60 - SS PRN PRN Reason: FS < 60 Enoxaparin Sodium (Lovenox(*)) 40 mg SUBCUT Q24H [facility] Last Admin: 12/29/18 07:33 Dose: 40 mg Fluoxetine HCl (Prozac Cap*) 20 mg PO DAILY [facility] Last Admin: 12/29/18 08:05 Dose: 20 mg Gabapentin (Neurontin Cap(*)) 300 mg PO TID [facility] Last Admin: 12/29/18 08:04 Dose: 300 mg Heparin Sodium (Porcine) (Heparin Flush Port (Ivad)) 5 ml FLUSH DAILY [facility]; Protocol Last Admin: 12/29/18 08:05 Dose: Not Given Azithromycin (Zithromax 500 Mg/250 Ml) 500 mg in 250 mls @ 250 mls/hr IVPB Q24H [facility] Last Admin: 12/29/18 02:18 Dose: 250 mls/hr Ceftriaxone Sodium 1 gm/ (Sodium Chloride) 50 mls @ 100 mls/hr IVPB Q24H [facility] Last Admin: 12/29/18 01:22 Dose: 100 mls/hr Insulin Human Lispro (Humalog*) 0 units SUBCUT ACHS [facility]; Protocol Last Admin: 12/29/18 12:38 Dose: Not Given Vital Signs - 8 hr 09/11/0912/29/18 12/29/18 07:15 08:00 08:04 Temperature 98.5 F Pulse Rate 88 Respiratory 18 18 20 Rate Blood Pressure 103/49 (mmHg) O2 Sat by Pulse 96 Oximetry 12/29/18 12/29/18 11:15 12:30 Temperature 99.4 F Pulse Rate 92 Respiratory 16 18 Rate Blood Pressure 111/54 (mmHg) O2 Sat by Pulse 97 Oximetry Oxygen Devices in Use Now: None Appearance: Patient is a 73yo female who appears stated age and is sitting in the bed in NAD. Eyes: No Scleral Icterus, PERRLA Ears/Nose/Mouth/Throat: NL Teeth, Lips, Gums, Clear Oropharnyx, Mucous Membranes Moist Neck: NL Appearance and Movements; NL JVP, Trachea Midline Respiratory: Symmetrical Chest Expansion and Respiratory Effort, Clear to Auscultation Cardiovascular: NL Sounds; No Murmurs; No JVD, RRR, No Edema Abdominal: NL Sounds; No Tenderness; No Distention, No Hepatosplenomegaly, - - Hernias stable, No drainage on bandage. Lymphatic: No Cervical Adenopathy Extremities: No Clubbing, Cyanosis Skin: No Nodules or Sclerosis Neurological: Alert and Oriented x 3, NL Sensation, NL Muscle Strength and Tone , - - CN II-XII intact Result Diagrams: 12/29/18 05:55 12/29/18 05:55 Additional Lab and Data: Lab Results Microbiology and Other Data: Microbiology 12/28/18 06:45 Skin and Soft Tissue MRSA/MSSA (PCR - Final Misc Source (See Comment) Mrsa Negative S.aureus Negative Gram Stain - Final Assess/Plan/Problems-Billing Assessment: Patient is a 73yo female with a PMH for Ovarian Cancer S/P Resection, chemo, and resection of intestines and stomach, TX, DM II, OA, here with chest pain, found to have pneumonia and a possible colocutaneous fistula who is being treated with antibiotics and is being seen by surgery. - Patient Problems (1) Community acquired bacterial pneumonia Current Visit: Yes Status: Acute Code(s): J15.9 - UNSPECIFIED BACTERIAL PNEUMONIA SNOMED Code(s): 177505798 Comment: - Infiltrate on CT with pleuritic pain, fevers. - Treat with Ceftriaxone/Azithromycin - Not requiring O2. - Pulmonary Toilet, Pending urine antigens - GPC in blood bottle x1, pending speciation (2) Colocutaneous fistula Current Visit: Yes Status: Acute Code(s): K63.2 - FISTULA OF INTESTINE SNOMED Code(s): 397426901 Comment: - Appreciate Surgical Input - No Immediate therapy recommended, No signs of abscess or indication for antibiotics - Consider Fistulogram, manage output - Complains of additional vaginal drainage, unlikely colovaginal fistula, possible yeast infection, which patient complains of frequently. (3) Ovarian cancer Current Visit: Yes Status: Acute Comment: - Undergoing chemo on 6/6 treatments last month, follow up outpatient oncologist for risks/benefits of ongoing chemo with fistula (4) History of TX (myocardial infarction) Current Visit: Yes Status: Acute Code(s): I25.2 - OLD MYOCARDIAL INFARCTION SNOMED Code(s): 743794781 Comment: - Arm/Chest pain not consistent with previous TX per patient - Low concern for recurrent TX - Negative trops x2 and non-ischemic EKG. (5) FATIMAH (obstructive sleep apnea) Current Visit: Yes Status: Acute Code(s): G47.33 - OBSTRUCTIVE SLEEP APNEA ( ADULT) (PEDIATRIC) SNOMED Code(s): 99963228 Comment: - CPAP (6) DM II (diabetes mellitus, type II), controlled Current Visit: Yes Status: Acute Code(s): E11.9 - TYPE 2 DIABETES MELLITUS WITHOUT COMPLICATIONS SNOMED Code(s): 89906541 Comment: - SSI and ACHS FSBG - Reintroduce lantus at D/C or as needed. (7) DVT prophylaxis Current Visit: Yes Status: Acute Code(s): Z29.9 - ENCOUNTER FOR PROPHYLACTIC MEASURES, UNSPECIFIED SNOMED Code(s): 364087582 Comment: - Lovenox SubQ (8) Full code status Current Visit: Yes Status: Acute Code(s): Z78.9 - OTHER SPECIFIED HEALTH STATUS SNOMED Code(s): 352881763 Status and Disposition: Inpatient for Pneumonia, awaiting blood culture results and hopeful D/C tomorrow.
[2018-12-29] MEDS: Acetaminophen TAB* 325 MG PO PRN (19:58)
[2018-12-30] MEDS: cefTRIAXone(*) 1 GM in NS 0.9% 50 ML* 50 ML IVPB SCH (01:02)
[2018-12-30] MEDS: Azithromycin 500 mg/250 ml NS 500 MG/250 ML BAG IVPB SCH (02:06)
[2018-12-30] MEDS ORDERED: Vancomycin Trough Check NOTE FOLLOW UP ONE (05:30)
[2018-12-30 06:46] LABS: Hematocrit 23 % (35-47); Hemoglobin 7.8 g/dL (12.0-16.0); Mean Corpuscular HGB Conc 34 g/dL (31-36); Mean Corpuscular Hemoglobin 35 pg (27-31); Mean Corpuscular Volume 102 fL (80-97); Mean Platelet Volume 8.4 fL (7.4-10.4); Platelet Count 175 10^3/uL (150-450); Red Blood Count 2.24 10^6 /uL (3.70-4.87); Red Cell Distribution Width 18 % (10-15); White Blood Count 2.7 10^3/uL (3.5-10.8)
[2018-12-30 07:04] LABS: BUN/Creatinine Ratio 15.3 (8-20); EGFR African American 120.9 (>60); EGFR Non-African American 99.9 (>60); Magnesium 1.7 mg/dL (1.9-2.7); Potassium 3.8 mmol/L (3.5-5.0)
[2018-12-30 07:08] LABS: ABS Eosinophils 0.1 10^3/ul (0-0.6); ABS Lymphocytes 0.7 10^3/ul (1.0-4.8); ABS Monocytes 0.5 10^3/ul (0-0.8); ABS Neutrophils 1.5 10^3/ul (1.5-7.7); Lymphocyte % 25.6 %; Nucleated Red Blood Cells % 0.1
[2018-12-30 07:12] LABS: Polychromasia 1+
[2018-12-30] MEDS: Enoxaparin(*) 40 MG/0.4 ML SYR SUBCUT SCH (08:23)
[2018-12-30] MEDS: Gabapentin CAP(*) 300 MG PO SCH ×3 (08:23→22:16)
[2018-12-30] MEDS: FLUoxetine CAP* 20 MG PO SCH (08:23)
[2018-12-30] MEDS: Clobetasol 0.05% OINT* 30 GM TUBE TOPICAL SCH ×2 (08:23→22:19)
[2018-12-30] MEDS: Aspirin EC TAB* 81 MG TAB.EC PO SCH (08:24)
[2018-12-30] MEDS: Insulin LISPRO* 1 UNITS UNIT SUBCUT SCH ×4 (08:25→22:19)
[2018-12-30] MEDS ORDERED: Magnesium Sulfate 2 GM IV* 2 GM/50 ML BAG IVPB ONE (10:16)
[2018-12-30 14:19] LABS: Hematocrit 25 % (35-47); Hemoglobin 8.4 g/dL (12.0-16.0)
--- NOTE | 2018-12-30 14:29 | PN ---
Subjective Date of Service: 12/30/18 Interval History: Patient is feeling well today except for a slight decrease in exercise tolerance. Patient denies CP, SOB, Dizziness, F/C, N/V, abdominal pain, increase in drainage, or other pain. Patient is anxious to go home. Family History: Unchanged from Admission Social History: Unchanged from Admission Past Medical History: Unchanged from Admission Objective Active Medications: Acetaminophen (Tylenol Tab*) 650 mg PO Q6H PRN PRN Reason: HEADACHE Last Admin: 12/29/18 19:58 Dose: 650 mg Aspirin (Aspirin Ec Tab*) 81 mg PO QAM [facility] Last Admin: 12/30/18 08:24 Dose: 81 mg Cetirizine HCl (Zyrtec*) 10 mg PO DAILY PRN PRN Reason: Allergy Symptoms Clobetasol Propionate (Clobetasol 0.05% Oint*) 1 applic TOPICAL BID [facility] Last Admin: 12/30/18 08:23 Dose: 1 applic Dextrose (Dextrose 50% Vial 50 Ml*) 25 ml IV PUSH .FOR FS < 60 - SS PRN PRN Reason: FS < 60 Enoxaparin Sodium (Lovenox(*)) 40 mg SUBCUT 0800 [facility] Last Admin: 12/30/18 08:23 Dose: 40 mg Fluoxetine HCl (Prozac Cap*) 20 mg PO DAILY [facility] Last Admin: 12/30/18 08:23 Dose: 20 mg Gabapentin (Neurontin Cap(*)) 300 mg PO TID [facility] Last Admin: 12/30/18 12:57 Dose: 300 mg Heparin Sodium (Porcine) (Heparin Flush Port (Ivad)) 5 ml FLUSH DAILY [facility]; Protocol Last Admin: 12/30/18 10:21 Dose: 5 ml Azithromycin (Zithromax 500 Mg/250 Ml) 500 mg in 250 mls @ 250 mls/hr IVPB Q24H [facility] Last Admin: 12/30/18 02:06 Dose: 250 mls/hr Ceftriaxone Sodium 1 gm/ (Sodium Chloride) 50 mls @ 100 mls/hr IVPB Q24H [facility] Last Admin: 12/30/18 01:02 Dose: 100 mls/hr Insulin Human Lispro (Humalog*) 0 units SUBCUT ACHS [facility]; Protocol Last Admin: 12/30/18 12:56 Dose: 1 units Vital Signs - 8 hr 12/30/18 12/30/18 12/30/18 07:15 08:00 08:23 Temperature 98.1 F Pulse Rate 81 Respiratory 20 18 16 Rate Blood Pressure 116/52 (mmHg) O2 Sat by Pulse 95 Oximetry 12/30/18 12/30/18 11:17 12:57 Temperature Pulse Rate Respiratory 18 18 Rate Blood Pressure (mmHg) O2 Sat by Pulse Oximetry Oxygen Devices in Use Now: None Appearance: Patient is a 73yo female who appears stated age and is sitting in the bed in [facility]. Eyes: No Scleral Icterus, PERRLA Ears/Nose/Mouth/Throat: NL Teeth, Lips, Gums, Clear Oropharnyx, Mucous Membranes Moist Neck: NL Appearance and Movements; NL JVP, Trachea Midline Respiratory: Symmetrical Chest Expansion and Respiratory Effort, Clear to Auscultation Cardiovascular: NL Sounds; No Murmurs; No JVD, RRR, No Edema Abdominal: NL Sounds; No Tenderness; No Distention, No Hepatosplenomegaly Lymphatic: No Cervical Adenopathy Extremities: No Edema, No Clubbing, Cyanosis Skin: No Nodules or Sclerosis, - - Small open area in umbilicus with scant drainage. Neurological: Alert and Oriented x 3, NL Sensation, NL Muscle Strength and Tone , - - CN II-XII intact. Result Diagrams: 12/30/18 14:00 12/30/18 05:36 Additional Lab and Data: Lab Results 12/27/18 12/27/18 12/27/18 Range/Units 15:46 15:46 15:46 WBC 4.8 (3.5-10.8) 10^3/uL RBC 2.70 L (3.70-4.87) 10^6 /uL Hgb 9.4 L (12.0-16.0) g/dL Hct 28 L (35-47) % MCV 103 H (80-97) fL MCH 35 H (27-31) pg MCHC 34 (31-36) g/dL RDW 18 H (10-15) % Plt Count 166 (150-450) 10^3/uL MPV 7.7 (7.4-10.4) fL Neut % (Auto) 70.0 % Lymph % (Auto) 19.3 % [place] % (Auto) 9.2 % Eos % (Auto) 1.0 % Baso % (Auto) 0.5 % Absolute Neuts (auto) 3.4 (1.5-7.7) 10^3/ul Absolute Lymphs (auto) 0.9 L (1.0-4.8) 10^3/ul Absolute Monos (auto) 0.4 (0-0.8) 10^3/ul Absolute Eos (auto) 0.0 (0-0.6) 10^3/ul Absolute Basos (auto) 0.0 (0-0.2) 10^3/ul Absolute Nucleated RBC 0.0 10^3/ul Nucleated RBC % 0.1 INR (Anticoag Therapy) 1.03 (0.82-1.09) Sodium 136 (135-145) mmol/L Potassium 3.9 (3.5-5.0) mmol/L Chloride 100 L (101-111) mmol/L Carbon Dioxide 26 (22-32) mmol/L Anion Gap 10 (2-11) mmol/L BUN 13 (6-24) mg/dL Creatinine 0.72 (0.51-0.95) mg/dL Est GFR ( Amer) 96.1 (>60) Est GFR (Non-Af Amer) 79.4 (>60) BUN/Creatinine Ratio 18.1 (8-20) Glucose 138 H (70-100) mg/dL Calcium 9.7 (8.6-10.3) mg/dL Total Bilirubin 0.30 (0.2-1.0) mg/dL AST 13 (13-39) U/L ALT 13 (7-52) U/L Alkaline Phosphatase 81 (34-104) U/L Troponin I 0.00 (<0.04) ng/mL Total Protein 7.0 (6.4-8.9) g/dL Albumin 4.0 (3.2-5.2) g/dL Globulin 3.0 (2-4) g/dL Albumin/Globulin Ratio 1.3 (1-3) 12/27/18 Range/Units 19:24 WBC (3.5-10.8) 10^3/uL RBC (3.70-4.87) 10^6 /uL Hgb (12.0-16.0) g/dL Hct (35-47) % MCV (80-97) fL MCH (27-31) pg MCHC (31-36) g/dL RDW (10-15) % Plt Count (150-450) 10^3/uL MPV (7.4-10.4) fL Neut % (Auto) % Lymph % (Auto) % [place] % (Auto) % Eos % (Auto) % Baso % (Auto) % Absolute Neuts (auto) (1.5-7.7) 10^3/ul Absolute Lymphs (auto) (1.0-4.8) 10^3/ul Absolute Monos (auto) (0-0.8) 10^3/ul Absolute Eos (auto) (0-0.6) 10^3/ul Absolute Basos (auto) (0-0.2) 10^3/ul Absolute Nucleated RBC 10^3/ul Nucleated RBC % INR (Anticoag Therapy) (0.82-1.09) Sodium (135-145) mmol/L Potassium (3.5-5.0) mmol/L Chloride (101-111) mmol/L Carbon Dioxide (22-32) mmol/L Anion Gap (2-11) mmol/L BUN (6-24) mg/dL Creatinine (0.51-0.95) mg/dL Est GFR ( Amer) (>60) Est GFR (Non-Af Amer) (>60) BUN/Creatinine Ratio (8-20) Glucose (70-100) mg/dL Calcium (8.6-10.3) mg/dL Total Bilirubin (0.2-1.0) mg/dL AST (13-39) U/L ALT (7-52) U/L Alkaline Phosphatase (34-104) U/L Troponin I 0.01 (<0.04) ng/mL Total Protein (6.4-8.9) g/dL Albumin (3.2-5.2) g/dL Globulin (2-4) g/dL Albumin/Globulin Ratio (1-3) Microbiology and Other Data: Microbiology 12/28/18 06:45 Skin and Soft Tissue MRSA/MSSA (PCR - Final Misc Source (See Comment) Mrsa Negative S.aureus Negative Gram Stain - Final Assess/Plan/Problems-Billing Assessment: Patient is a 73yo female with a PMH for Ovarian Cancer S/P Resection, chemo, and resection of intestines and stomach, PR, DM II, OA, here with chest pain, found to have pneumonia and a possible colocutaneous fistula who is being treated with antibiotics and is being seen by surgery. - Patient Problems (1) Community acquired bacterial pneumonia Current Visit: Yes Status: Acute Code(s): J15.9 - UNSPECIFIED BACTERIAL PNEUMONIA SNOMED Code(s): 678174580 Comment: - Infiltrate on CT with pleuritic pain, fevers. - Treat with Ceftriaxone/Azithromycin - Not requiring O2. - Pulmonary Toilet, Pending urine antigens - GPC in blood bottle x1, pending speciation, will be back tomorrow per Microbiology. (2) Colocutaneous fistula Current Visit: Yes Status: Acute Code(s): K63.2 - FISTULA OF INTESTINE SNOMED Code(s): 135529375 Comment: - Appreciate Surgical Input - No Immediate therapy recommended, No signs of abscess or indication for antibiotics - Consider Fistulogram, manage output - Complains of additional vaginal drainage, unlikely colovaginal fistula, possible yeast infection, which patient complains of frequently. (3) Ovarian cancer Current Visit: Yes Status: Acute Comment: - Undergoing chemo on 6/6 treatments last month, follow up outpatient oncologist for risks/benefits of ongoing chemo with fistula - Likely cause of lymphopenia (4) History of PR (myocardial infarction) Current Visit: Yes Status: Acute Code(s): I25.2 - OLD MYOCARDIAL INFARCTION SNOMED Code(s): 059233939 Comment: - Arm/Chest pain not consistent with previous PR per patient - Low concern for recurrent PR - Negative trops x2 and non-ischemic EKG. (5) FATIMAH (obstructive sleep apnea) Current Visit: Yes Status: Acute Code(s): G47.33 - OBSTRUCTIVE SLEEP APNEA ( ADULT) (PEDIATRIC) SNOMED Code(s): 75013076 Comment: - CPAP (6) DM II (diabetes mellitus, type II), controlled Current Visit: Yes Status: Acute Code(s): E11.9 - TYPE 2 DIABETES MELLITUS WITHOUT COMPLICATIONS SNOMED Code(s): 29294064 Comment: - SSI and ACHS FSBG - Reintroduce lantus at D/C or as needed. (7) DVT prophylaxis Current Visit: Yes Status: Acute Code(s): Z29.9 - ENCOUNTER FOR PROPHYLACTIC MEASURES, UNSPECIFIED SNOMED Code(s): 554653284 Comment: - Lovenox SubQ (8) Full code status Current Visit: Yes Status: Acute Code(s): Z78.9 - OTHER SPECIFIED HEALTH STATUS SNOMED Code(s): 185490663 Status and Disposition: Inpatient for Pneumonia, awaiting blood culture results and hopeful D/C tomorrow.
[2018-12-31] MEDS: cefTRIAXone(*) 1 GM in NS 0.9% 50 ML* 50 ML IVPB SCH (02:27)
[2018-12-31] MEDS: Azithromycin 500 mg/250 ml NS 500 MG/250 ML BAG IVPB SCH (03:39)
[2018-12-31 05:58] LABS: ABS Eosinophils 0.1 10^3/ul (0-0.6); ABS Lymphocytes 0.8 10^3/ul (1.0-4.8); ABS Monocytes 0.8 10^3/ul (0-0.8); ABS Neutrophils 1.7 10^3/ul (1.5-7.7); Eosinophil % 1.7 %; Hematocrit 23 % (35-47); Hemoglobin 7.8 g/dL (12.0-16.0); Lymphocyte % 22.7 %; Mean Corpuscular HGB Conc 35 g/dL (31-36); Mean Corpuscular Hemoglobin 35 pg (27-31); Mean Corpuscular Volume 101 fL (80-97); Mean Platelet Volume 8.2 fL (7.4-10.4); Nucleated Red Blood Cells % 0.1; Platelet Count 217 10^3/uL (150-450); Red Blood Count 2.24 10^6 /uL (3.70-4.87); Red Cell Distribution Width 18 % (10-15); White Blood Count 3.4 10^3/uL (3.5-10.8)
[2018-12-31 06:19] LABS: BUN/Creatinine Ratio 16.2 (8-20); Calcium 8.5 mg/dL (8.6-10.3); EGFR African American 102.6 (>60); EGFR Non-African American 84.8 (>60); Potassium 3.8 mmol/L (3.5-5.0)
[2018-12-31] MEDS: Insulin LISPRO* 1 UNITS UNIT SUBCUT SCH ×2 (08:14→12:04)
[2018-12-31] MEDS: Gabapentin CAP(*) 300 MG PO SCH (09:37)
[2018-12-31] MEDS: Aspirin EC TAB* 81 MG TAB.EC PO SCH (09:37)
[2018-12-31] MEDS: Enoxaparin(*) 40 MG/0.4 ML SYR SUBCUT SCH (09:37)
[2018-12-31] MEDS: Clobetasol 0.05% OINT* 30 GM TUBE TOPICAL SCH (09:47)
[2018-12-31] MEDS: FLUoxetine CAP* 20 MG PO SCH (10:01)
[2018-12-31 11:30] VITALS: BP 102/51
--- NOTE | 2019-01-01 03:46 | DS ---
CC: [facility] * DISCHARGE SUMMARY: DATE OF ADMISSION: 12/28/18 DATE OF DISCHARGE: 12/31/18 ATTENDING PROVIDER: Brigid Dumont MD * (DICTATED BY DANII TRACEY) PRIMARY CARE PHYSICIAN: Julio Henning MD PATIENT'S OUTPATIENT ONCOLOGIST: Patient's outpatient oncologist is through [facility]. PRIMARY DISCHARGE DIAGNOSES: 1. Sepsis related to pneumonia, resolved. 2. Community-acquired pneumonia. 3. Possible enterocutaneous fistula. 4. Positive blood culture from unknown organism, likely contaminant. SECONDARY DISCHARGE DIAGNOSES: 1. History of ovarian cancer, status post resection. 2. History of stomach and bowel resection. 3. Coronary artery disease. 4. Diabetes mellitus type 2 with diabetic retinopathy. 5. Osteoarthritis. 6. Hypertension. 7. Sleep apnea, on CPAP. STUDIES DONE WHILE IN HOSPITAL: Chest, abdomen and pelvis CT from 12/27/18 read as viral left upper lobe infiltrate and consolidation consistent with pneumonia, status post right mastectomy with right axillary lymph node dissection, otherwise negative. CT chest, no acute posttraumatic change is seen , umbilical hernia with small bowel segments, no obstruction. There is slight induration about the umbilicus or anterior aspect of the hernia sac of uncertain etiology. Small epigastric midline ventral wall hernia with small bowel and no obstruction or strangulation. There is right epigastric anterolateral hernia contained in the hepatic flexure with question of low- grade colonic obstruction, status post cholecystectomy. Fatty infiltration of the liver. No acute posttraumatic change noted. MEDICATIONS AT DISCHARGE: 1. Aspirin 81 mg daily. 2. Valacyclovir 500 mg p.o. as needed for herpes outbreak. 3. Insulin detemir 40 units subcutaneous q.a.m. 4. Loratadine 10 mg p.o. daily. 5. Praluent one dose IM weekly. 6. Gabapentin 300 mg p.o. t.i.d. 7. Insulin aspart sliding scale. 8. Ozempic 0.75 mg one dose IM weekly. 9. Decadron 0.5 mg 3 times a day after chemo for nausea. 10. Doxorubicin one dose IV monthly. 11. The patient received 6 doses of carboplatin, 10 mg one dose IV monthly. Patient received 6 office dose of this. 12. Lidex 1 application topical b.i.d. 13. Fluoxetine 20 mg p.o. daily. 14. Clobetasol one application topical b.i.d. 15. Tylenol 650 mg p.o. q.6 hours as needed. 16. Azithromycin 250 mg p.o. daily x1. 17. Cefuroxime 500 mg p.o. b.i.d. x14. New medications at discharge: 1. Tylenol. 2. Azithromycin. 3. Cefuroxime. Medications discontinued at discharge: None. HOSPITAL COURSE: This is a brief summary of the patient's presentation. For more details, please see history and physical from Dr. Skinny Mendoza on 12/28/18. In brief, the patient is a 73-year-old female with past medical history significant for the above, who presented to the emergency department with left- sided shoulder pain which is pleuritic. The patient came in to the emergency department with the above as well as an open wound around her umbilicus with slight drainage from it for approximately 7 days before her admission. The patient was admitted to the hospital and was started on antibiotics for community-acquired pneumonia and was seen in consultation by DANII Beltran of Surgery in conjunction with Dr. Kortney Nuñez of General Surgery, who believed the patient may have a colocutaneous or enterocutaneous fistula and a possible colovaginal fistula, though this was unconfirmed while in the hospital. They recommended outpatient followup as the symptomatology and drainage from these were minimal. The patient had wound swab which showed strep group B and actinomyces. Step group B and Staphylococcus lugdunensis were also found in the urine in very low levels and as above there was an unidentified gram-positive cocci bacterium in her blood which was believed to be an environmental organism, likely contaminant that was sent to [facility] for further evaluation. The patient had otherwise 3 other bottles negative blood cultures. The patient felt well very quickly. Her diet was advanced. She had minimal drainage from her fistula and minimal vaginal drainage. The patient was able to ambulate around the unit several times. She had a good exercise capacity. Patient had slight lymphopenia as well as anemia while she was in the hospital. She stated that she had previously been anemic in association with her chemotherapy and she was not symptomatic from this. The patient's hemoglobin remained around 8. The patient's blood glucose was under very good control while in the hospital. After the patient's cultures came back negative, the patient was anxious for discharge on 12/31/18 with a plan for followup closely with her primary care provider and her outpatient gynecological oncologist. PHYSICAL EXAMINATION ON THE DAY OF DISCHARGE: General: The patient is 73-year- old female who appears stated age, sitting comfortably in the bed in no acute distress. Vital Signs at Discharge: Temperature 98.3, pulse rate 79, respiratory rate 20, oxygen saturation 97% on room air, blood pressure 102/51. HEENT: Head normocephalic, atraumatic. Sclerae anicteric. No conjunctival injection. Nasal mucosa is moist. Oral mucosa moist. No pharyngeal erythema, discharge or exudate. Neck: Supple, nontender. No lymphadenopathy. No carotid bruit auscultated. No JVD. Cardiac: Regular rate and rhythm. No clicks, murmurs, gallops, or rubs. Pulses 2+ in the bilateral dorsalis pedis, posterior tibialis, and radial areas. Respiratory: Clear to auscultation bilaterally. No wheezes, rales, or rhonchi. Good air exchange bilaterally. Abdomen: Soft, nontender, nondistended. Ventral hernias palpated, easily reducible. Small area of drainage around the umbilicus with slight erythema. Minimal drainage, no appreciable odor. Genitourinary: No suprapubic tenderness or CVA tenderness. No vaginal exam performed. Skin: Above open area on the umbilicus, no other rashes or ulcers. Neuro: Cranial nerves II through XII grossly intact. No focal deficits. Alert and oriented x3. Psychiatric: Pleasant and cooperative. DISCHARGE PLAN BY PROBLEM: 1. Community-acquired pneumonia. The patient's pneumonia is much better on treatment with ceftriaxone and azithromycin. This is being continued as Ceftin and oral azithromycin for 4 more days and 1 more day respectively. These should also cover the staph group B from her wound on her abdomen, though this does not appear to be grossly infected. The patient to follow up with her primary care provider within 1 week to ensure continued improvement in this area and her respiratory status. 2. 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 It was recommended that the patient follow up with her outpatient oncologist for her fistula with regard to whether or not it would be appropriate to continue chemotherapy, whether or not this would need closure or if it would be able to heal on its own. It was deemed this would be better done with coordination with the patient's oncologist , outpatient staff at [facility] given her complex surgical history. Regarding her abdomen, the patient also has a foul smelling vaginal discharge. The patient was agreeable to follow up with her outpatient primary care provider or gynecological oncologist for vaginal exam as this provider was familiar with her gynecologic care and she was not symptomatic from this either. The drainage from her vagina seemed to decrease as her hospitalization continued. Patient should return to the hospital for large increases in drainage from either her umbilical hernia or her vagina. 3. Type 2 diabetes mellitus. Resume home medications. The patient had very good control while in the hospital. 4. History of ovarian cancer. Continue followup with patient's primary oncologist through [facility] as outpatient on 01/09/19. 5. Sleep apnea, continue CPAP. 6. Coronary artery disease, continue secondary prevention with aspirin. The patient is allergic to STATINS. DISPOSITION: Home. CONDITION: Stable. TIME SPENT: Approximately 60 minutes was spent on discharge of this patient, 30 of which spent [id number] with the patient obtaining history and physical and discussing the treatment plan. DANII TRACEY [id number]/[facility] #: [id number] ISIAH
== END 2018-12-31 13:10 | disposition home or self-care (01) | DRG 871 ==
LOC: ED 15:22 → MED 12-28 06:23
PROVIDERS: ADMIT Internal Medicine; ATTEND Internal Medicine
DX: A41.9 Sepsis, unspecified organism (principal); J18.9 Pneumonia, unspecified organism; K63.2 Fistula of intestine; C56.9 Malignant neoplasm of unspecified ovary; I25.10 Atherosclerotic heart disease of native coronary artery without angina pectoris; E11.319 Type 2 diabetes mellitus with unspecified diabetic retinopathy without macular edema; M19.90 Unspecified osteoarthritis, unspecified site; K43.9 Ventral hernia without obstruction or gangrene; I10 Essential (primary) hypertension; E11.42 Type 2 diabetes mellitus with diabetic polyneuropathy; K42.9 Umbilical hernia without obstruction or gangrene; E78.5 Hyperlipidemia, unspecified; G47.33 Obstructive sleep apnea (adult) (pediatric); D64.9 Anemia, unspecified; M25.512 Pain in left shoulder; R07.81 Pleurodynia; F32.9 Major depressive disorder, single episode, unspecified; Z96.653 Presence of artificial knee joint, bilateral; Z99.89 Dependence on other enabling machines and devices; Z95.5 Presence of coronary angioplasty implant and graft; Z79.82 Long term (current) use of aspirin; Z79.4 Long term (current) use of insulin; Z79.899 Other long term (current) drug therapy; Z88.4 Allergy status to anesthetic agent; Z88.2 Allergy status to sulfonamides; Z88.8 Allergy status to other drugs, medicaments and biological substances; Z83.3 Family history of diabetes mellitus; Z90.11 Acquired absence of right breast and nipple; I25.2 Old myocardial infarction
CPT/HCPCS: 36415; 71260; 74177; 80048; 80053; 81003; 81015; 83735; 84484; 85014; 85018; 85025; 85060; 85610; 87040; 87070; 87077; 87086; 87150; 87186; 87205; 87640; 87641; 87899; 93005; 94660; 99212; 99284; A9270-GY; G0463; J0456; J0696; J1642; J1650; J3370; J3475; Q9967